=== PATIENT | female | born 1980 | race Caucasian/White ===

== ENCOUNTER 2021-03-25 20:10 | Emergency (ER) | payer OTHER ==
[2021-03-25 21:58] LABS: HEMOGLOBIN 13.5 gm/dl (12.3-15.3); RED BLOOD COUNT 4.53 M/UL (4.00-5.10); WHITE BLOOD COUNT 10.9 K/UL (4.5-11.0)
[2021-03-26] MEDS ORDERED: CLEOCIN HCL300 MG PO (01:20)
== END 2021-03-26 01:55 | disposition home or self-care (01) ==
LOC: ER1 20:10
PROVIDERS: Physician Assistant
DX: L02.413 Cutaneous abscess of right upper limb (principal)
CPT/HCPCS: 73090; 80048; 83605; 85025; 87040; 87070; 87077; 87205; 96365; 99282